=== PATIENT | male | born 1980 | race Caucasian/White ===

== ENCOUNTER 2020-03-22 08:01 | Outpatient (CLI) | payer OTHER, SELFPAY ==
--- NOTE | 2020-03-22 08:06 | MR_ITS ---
WS: [id number] MRI LEFT SHOULDER NONCONTRAST TECHNIQUE: Sagittal T2, coronal T1, T2 and proton density imaging. Axial gradient PDE imaging. CLINICAL INFORMATION: IMPINGEMENT SYNDROME LT SHOULDER COMPARISON: None. FINDINGS: Moderate degenerative arthritis at the AC joint with edema. Synovial thickening. Preservation of the subacromial space. Tiny tear at the supraspinatus insertion. Supraspinatus is otherwise normal in mallory earance. Normal infraspinatus. Normal teres minor. Normal subscapularis. Normal biceps tendon in the bicipital groove. Normal biceps labral anchor. Normal intra-articular bic eps tendon. Glenoid labrum appears grossly normal. Normal bone marrow signal. MR/MR shoulder LT wo con* [id number] IMPRESSION: 1. Moderate degenerative arthritis at the AC joint with mild edema and synovia l thickening. 2. Tiny insertional tear at the supraspinatus insertion. 3. Rotator cuff is otherwise normal in appearance. 4. Normal biceps labral anchor. Normal biceps tendon in the bicipital groove.
== END 2020-03-22 08:02 | disposition home or self-care (01) ==
LOC: RADSHAW 08:03
PROVIDERS: PCP Nurse Practitioner; Visit Provider Nurse Practitioner
DX: M75.42 Impingement syndrome of left shoulder (principal); M75.102 Unspecified rotator cuff tear or rupture of left shoulder, not specified as traumatic; M19.012 Primary osteoarthritis, left shoulder
CPT/HCPCS: 73221